=== PATIENT | male | born 1980 | race African-American/Black ===

== ENCOUNTER 2023-12-13 00:37 | Observation (INO) | payer MEDICARE ==
[~2023-12-13] VITALS: Ht 170.2 cm; Wt 157.2 kg
[2023-12-13] VITALS (20 sets, daily range): BP systolic 109–146; BP diastolic 75–105
[~2023-12-13 00:37] MED LIST: ALLOPURINOL100 MG PO; AMOXICILLIN500 MG PO; ASPIRIN325 M1 OR; BACTRIM DS1 TAB PO; CLEOCIN300 MG PO; COUMADIN10 MG OR; FLEXERIL OR; GLIPIZIDE10 MG PO; HUMULIN R1 M1 SC; HYDROCHLORO25 MG/TAB PO; HYDROCHLOROT25 MG OR; HYDROCHLOROTH12.5 MG OR; IRON325 MG OR; KLOR-CON M1010 MEQ OR; LEVAMIR SC; LISINOPRIL20 M1 PO; LISINOPRIL20 MG PO; LOVASTATIN20 MG OR; MELOXICAM7.5 MG PO; METFORMIN500 M1 OR; METFORMIN500 MG PO; METFORMIN850 MG PO; NAPROSYN500 MG PO; OXYCODONE20 MG OR; OXYCONTIN40 MG OR; PERCOCET1 TA1 OR; SENNA1 TAB OR; ULTRAM50 M1 PO; VERAPAMIL360 MG OR; WARFARIN10 MG OR
--- NOTE | 2023-12-13 00:40 | NUR ---
AMBULATORY FROM TO ROOM 6 FOR TRIAGE. SOB....BUT STATES HE IS HERE FOR GAS PAINS X 1 MONTH.
[2023-12-13] MEDS ORDERED: SIMVASTATIN40 MG PO (00:56)
[2023-12-13] MEDS ORDERED: LISINOP/HCTZ1 TA2 PO (00:56)
[2023-12-13 01:08] LABS: BASO% 0.6 % (0-3); EOS% 1.1 % (0-8); HEMOGLOBIN 12.4 g/dl (14.0-18.0); LYMPH% 12.1 % (15-41); MEAN CORPUSCULAR HGB 29.9 pG CALC (26.0-32.0); MEAN CORPUSCULAR HGB CONC 31.8 g/dL CAL (32.0-36.0); MONO% 10.8 % (2-13); NEUT# 6.19 thou/uL (1.82-7.42); NEUT% 74.4 % (42-76); RED BLOOD COUNT 4.15 mill/uL (4.70-6.10); RED CELL DISTRI WIDTH 14.7 % (11.5-15.5)
[2023-12-13 01:24] LABS: ALBUMIN 3.6 g/dL (3.2-5.0); CREATININE 1.1 mg/dL (0.7-1.3); TOTAL PROTEIN 7.2 g/dL (6.3-8.2)
[2023-12-13 01:25] LABS: BILIRUBIN, TOTAL 2.6 mg/dL (0.2-1.3); POTASSIUM 3.4 mmol/l (3.5-5.1)
[2023-12-13 01:31] LABS: ACT PARTIAL THROMBO TIME 23.6 SECONDS (20.0-32.5)
--- NOTE | 2023-12-13 01:40 | NUR ---
PT SITTING IN RM AWAITING RESULTS AT THIS TIME. CALL LIGHT WITHIN REACH AND PT HAS NO NEEDS OR CONCERNS AT THIS TIME.
[2023-12-13 01:41] LABS: D-DIMER 1.02 mg/L (0.19-0.60)
[2023-12-13 01:43] LABS: INTERNATIONAL NORMALIZED RATIO 1.6 RATIO (0.7-1.3); PROTHROMBIN TIME 15.3 SECONDS (9.0-12.5)
[2023-12-13] MEDS ORDERED: FUROSEMIDE 40 MG/4 ML SDV IV ONE (01:50)
[2023-12-13] MEDS ORDERED: NITROGLYCERIN 2% OINT UD 1 GM/PAK TD ONE (01:55)
--- NOTE | 2023-12-13 02:01 | NUR ---
DR TO BEDSIDE TO DISCUSS BNP/HEART FAILURE. PT MEDICATED AND TAKEN TO CT. URINE SAMPLE SENT.
[2023-12-13 02:09] LABS: URINE BLOOD DIPSTICK Moderate (NEGATIVE); URINE CLARITY Slightly Cloudy; URINE GLUCOSE - DIPSTICK Negative (NEGATIVE); URINE KETONE Negative (NEGATIVE); URINE LEUK ESTERASE Negative (Negative); URINE NITRITE - DIPSTICK Negative (Negative); URINE PH 5.5 (4.5-8.0); URINE PROTEIN - DIPSTICK >=300 mg/dL (NEG-TRACE); URINE SPECIFIC GRAVITY >=1.030
[2023-12-13 02:13] LABS: URINE COLOR Yellow
[2023-12-13 02:24] LABS: URINE BACTERIA MODERATE hpf; URINE MUCUS FEW hpf (NONE-FEW); URINE SQUAMOUS EPITHELIAL CELL FEW EPI/hpf (0-FEW)
--- NOTE | 2023-12-13 02:54 | NUR ---
PT SITTING IN RM AWAITING RESULTS AT THIS TIME. CALL LIGHT WITHIN REACH AND PT HAS NO NEEDS OR CONCERNS AT THIS TIME.
--- NOTE | 2023-12-13 03:55 | NUR ---
PT SITTING IN RM AWAITING RESULTS AT THIS TIME. CALL LIGHT WITHIN REACH AND PT HAS NO NEEDS OR CONCERNS AT THIS TIME.
--- NOTE | 2023-12-13 04:39 | NUR ---
PT SITTING IN RM AWAITING ADMIT AT THIS TIME. CALL LIGHT WITHIN REACH AND PT HAS NO NEEDS OR CONCERNS AT THIS TIME.
[2023-12-13] MEDS ORDERED: MAGNESIUM HYDROXIDE 30 ML UDC PO PRN (04:40)
[2023-12-13] MEDS ORDERED: SODIUM CHLORIDE 0.9% 1,000 ML IV PRN (04:40)
[2023-12-13] MEDS ORDERED: ACETAMINOPHEN 325 MG/TAB PO PRN (04:40)
--- NOTE | 2023-12-13 05:07 | NUR ---
PT TRANSFERRED TO A HOSPITAL BED AT THIS TIME AND IS TO REMAIN IN THE ER UNTIL A BED IS AVAILABLE UPSTAIRS. PT AWARE. CALL LIGHT WITHIN REACH AND PT HAS NO NEEDS OR CONCERNS. VSS. 2,000ML OF CLEAR YELLOW URINE EMPTIED OUT OF URINALS.
--- NOTE | 2023-12-13 06:11 | NUR ---
PT RESTING IN RM AWAITING RM UPSTAIRS. CALL LIGHT WITHIN REACH AND PT HAS NO NEEDS OR CONCERNS AT THIS TIME.
[2023-12-13] MEDS ORDERED: DEXTROSE 250 ML IV PRN ×2 (07:05)
--- NOTE | 2023-12-13 07:07 | NUR ---
REPORT GIVEN TO EVY CAMPOS AND CARE RELINQUISHED AT THIS TIME.
--- NOTE | 2023-12-13 07:16 | NUR ---
PT ASSESSMENT COMPLETE. PT RESTING WITH MONITOR IN PLACE. PT DENIES ANY PAIN OR CONCERNS AT THIS TIME. PLAN OF CARE REVIEWED WITH PT, PT DENIES ANY QUESTIONS UPON COMPLETION. PROVIDED PT WITH ORAL HYDRATION (8 OZ).
[2023-12-13] MEDS ORDERED: FUROSEMIDE 40 MG/4 ML SDV IV SCH ×2 (07:30→18:00)
[2023-12-13 08:05] LABS: BASO% 0.6 % (0-3); EOS% 0.8 % (0-8); HEMOGLOBIN 12.6 g/dl (14.0-18.0); IMMATURE GRANULOCYTES 0.1 % (0.0-5.0); LYMPH% 18.8 % (15-41); MEAN CELL VOLUME 94.2 fL CALC (80.0-100.0); MEAN CORPUSCULAR HGB 30.4 pG CALC (26.0-32.0); MEAN CORPUSCULAR HGB CONC 32.3 g/dL CAL (32.0-36.0); MONO% 9.6 % (2-13); NEUT# 5.83 thou/uL (1.82-7.42); NEUT% 70.1 % (42-76); RED BLOOD COUNT 4.14 mill/uL (4.70-6.10); RED CELL DISTRI WIDTH 14.7 % (11.5-15.5)
[2023-12-13 08:20] LABS: ALBUMIN 3.4 g/dL (3.2-5.0); BILIRUBIN, TOTAL 2.2 mg/dL (0.2-1.3); CREATININE 1.1 mg/dL (0.7-1.3); POTASSIUM 3.8 mmol/l (3.5-5.1); TOTAL PROTEIN 6.8 g/dL (6.3-8.2)
--- NOTE | 2023-12-13 08:36 | NUR ---
BOOKED A CARDIOLOGY COSULT WITH DR WIN VIA THE [facility] AT 0836 HRS.
[2023-12-13] MEDS ORDERED: INSULIN DETEMIR 100 UNITS/ML SC SCH (09:00)
--- NOTE | 2023-12-13 09:00 | NUR ---
PT TRANSPORTED TO [facility] BED [address]
--- NOTE | 2023-12-13 10:25 | NUR ---
PT IS SITTING ON CHAIR, DENIES SOB AT THIS TIME. PT IS AOX3. WHEEZING IS NOT HEARD UPON AUSCALATION. PT REPORTED BM THAT WAS WNL.
[2023-12-13] MEDS ORDERED: INSULIN LISPRO 100 UNITS/ML ML SC SCH (11:00)
[2023-12-13] MEDS ORDERED: METOPROLOL SUCCINATE 25 MG/TAB-TOPROL XL PO SCH (15:00)
--- NOTE | 2023-12-13 16:54 | NUR ---
CARDIOLOGY CONSULT IN PREOGRESS AT THIS TIME
--- NOTE | 2023-12-13 20:00 | NUR ---
PATIENT SITTING UP IN RECLINER AT THIS TIME. ALERT AND ORIENTEDX3. PATIENT WITH TELE MONITOR IN PLACE. LAST READING WAS SR-95 WITH PVC'S. VOIDING YELLOW URINE IN URINAL. PATIENT INSTRUCTED TO SAVE URINE IN URINAL FOR STRICT I&O. PATIENT IS GETTING LASIX 40MG IVP Q6H. VERBALIZES UNDERSTANDING. LUNGS ARE DIMINISHED BUT CLEAR. BLE SWELLING NOTED. PULSES ARE PALPABLE. ABD IS LARGE WITH ACTIVE BS. IV SITE TO RAC INTACT AND HEALTHY AT TH IS TIME. CALL LIGHT IN REACH. WILL CONT TO MONITOR.
[2023-12-13] MEDS ORDERED: ENOXAPARIN SODIUM 40 MG/0.4 ML SYR SC SCH (21:00)
[2023-12-13] MEDS ORDERED: ATORVASTATIN CALCIUM 40 MG/TAB PO SCH (21:00)
[2023-12-14] VITALS (10 sets, daily range): BP systolic 100–125; BP diastolic 66–95
--- NOTE | 2023-12-14 00:30 | NUR ---
PATIENT RESTING IN BED. MEDICATED WITH LASIX 40MG IVP VIA LEFT AC SITE ORDERED. CONT TO VOID YELLOW URINE IN URINAL. TELE MONITOR IN PLACE. NO COMPLAINTS AT THIS TIME. WILL CONT TO MONITOR.
--- NOTE | 2023-12-14 04:09 | NUR ---
PATIENT SITTING UP IN RECLINER-VOIDED 700CC OF CLEAR YELLOW URINE IN URINAL. TELE MONITOR IN PLACE. IV SITE TO LAC REMAINS INTACT-CIPRO HUNG AND INFUSING ORDERED LAC SITE. NO COMPLAINTS AT THIS TIME. CALL LIGHT IN REACH.L MWILL CONT TO MONITOR.
[2023-12-14 05:29] LABS: BASO% 0.6 % (0-3); EOS% 2.8 % (0-8); HEMATOCRIT 36.4 % (39.0-50.0); HEMOGLOBIN 12.3 g/dl (14.0-18.0); IMMATURE GRANULOCYTES 0.3 % (0.0-5.0); LYMPH% 20.2 % (15-41); MEAN CELL VOLUME 94.5 fL CALC (80.0-100.0); MEAN CORPUSCULAR HGB 31.9 pG CALC (26.0-32.0); MEAN CORPUSCULAR HGB CONC 33.8 g/dL CAL (32.0-36.0); MONO% 11.1 % (2-13); NEUT# 5.16 thou/uL (1.82-7.42); RED BLOOD COUNT 3.85 mill/uL (4.70-6.10); RED CELL DISTRI WIDTH 14.8 % (11.5-15.5)
[2023-12-14 05:34] LABS: ALBUMIN 3.2 g/dL (3.2-5.0); BILIRUBIN, TOTAL 1.4 mg/dL (0.2-1.3); CHOLESTEROL HDL RATIO 5.2 (<4.4 (CALC)); CREATININE 1.1 mg/dL (0.7-1.3); MAGNESIUM 1.2 mg/dL (1.6-2.3); POTASSIUM 3.2 mmol/l (3.5-5.1); TOTAL PROTEIN 6.4 g/dL (6.3-8.2)
--- NOTE | 2023-12-14 07:00 | NUR ---
SHIFT CHANGE REPORT, PT AWAKE ALERT AND ORIENTED SITTING UP IN RECLINER, NO C/O AT THIS TIME, TELE MONITOR IN PLACE, CALL PATRICK IN REACH.
[2023-12-14] MEDS ORDERED: POTASSIUM CHLORIDE 20 MEQ/TAB PO SCH (08:00)
[2023-12-14] MEDS ORDERED: MAGNESIUM SULFATE HEPTAHYDRATE 100 ML IV SCH (08:00)
--- NOTE | 2023-12-14 09:00 | NUR ---
VIRTUAL CONSULT WITH SUPPORTABILITY ENGINEER DONE, PLAN OF CARE DISCUSSED WITH PT WHO STATED UNDERSTANDING.
--- NOTE | 2023-12-14 12:07 | NUR ---
SITTING UP IN RECLINER AT THIS TIME, MAGNESIUM INFUSING, NO NEW COPLAINS. MD ROUNDED AND DISCUSSED CARE, PT TO HAVE ECHO DONE TODAY, NURSE WILL CONTACT ECHO AND COMPLETION OF MG INFUSION.
--- NOTE | 2023-12-14 16:20 | NUR ---
SITTING UP IN RECLINER AT THIS TIME AFTER BEING TRANSPORTED OFF UNIT TO ECHO AND TRANSPORTED BACK TO ROOM, ALL NEEDS ADDRESSED.
--- NOTE | 2023-12-14 20:00 | NUR ---
BEDSIDE SHIFT REPORT COMPLETED. SITTING UP ON COUCH WATCHING TELEVISION. DENIES NEEDS AT CURRENT TIME.
[2023-12-15] VITALS (9 sets, daily range): BP systolic 98–132; BP diastolic 70–97
--- NOTE | 2023-12-15 | NUR ---
MEDICATED WITH LONG ACTING INSULIN AND SNACK PROVIDED. DENIES PAIN OR DISCOMFORT. CONTINUES TO SIT UP IN CHAIR. ENCOURAGED TO ELEVATE LEGS WHILE IN CHAIR DUE TO EDEMA.
--- NOTE | 2023-12-15 04:00 | NUR ---
HAD GOOD NIGHT. NO C/O NOTED. SLEPT IN RECLINER ALL NIGHT. ENCOURAGED AGAIN TO ELEVATE LEGS WHILE IN RECLINER. GOOD OUTPUT FROM DIURETIC GIVEN. DENIED NEED AT CURRENT TIME.
--- NOTE | 2023-12-15 07:10 | NUR ---
REPORT RECEIVED FROM FRANKIERN
[2023-12-15 07:18] LABS: BASO% 0.5 % (0-3); EOS% 3.2 % (0-8); HEMATOCRIT 41.1 % (39.0-50.0); HEMOGLOBIN 13.3 g/dl (14.0-18.0); IMMATURE GRANULOCYTES 0.3 % (0.0-5.0); LYMPH% 21.4 % (15-41); MEAN CELL VOLUME 93.4 fL CALC (80.0-100.0); MEAN CORPUSCULAR HGB 30.2 pG CALC (26.0-32.0); MEAN CORPUSCULAR HGB CONC 32.4 g/dL CAL (32.0-36.0); MONO% 10.3 % (2-13); NEUT# 4.97 thou/uL (1.82-7.42); NEUT% 64.3 % (42-76); RED BLOOD COUNT 4.4 mill/uL (4.70-6.10); RED CELL DISTRI WIDTH 14.8 % (11.5-15.5)
[2023-12-15 07:32] LABS: ALBUMIN 3.5 g/dL (3.2-5.0); BILIRUBIN, TOTAL 1.3 mg/dL (0.2-1.3); CREATININE 0.9 mg/dL (0.7-1.3); MAGNESIUM 1.5 mg/dL (1.6-2.3); POTASSIUM 3.2 mmol/l (3.5-5.1); TOTAL PROTEIN 6.9 g/dL (6.3-8.2)
[2023-12-15] MEDS ORDERED: LOSARTAN Potassium 25 MG/TAB PO SCH (09:00)
--- NOTE | 2023-12-15 09:05 | NUR ---
PT OOB RESTING IN RECLINER,A&O X3;VS OBTAINED AND ASSESSMENT COMPLETED;PT DENIES ANY CURRENT PAIN OR DISCOMFORTS,PAIN SCALE AND REPORTING EDUCATED;RESPIRATIONS EVEN AND UNLABORED ON RA,DIMINISHED LUNG SOUNDS;ABDOMEN DISTENDED/SOFT ON PALPATION AND ACTIVE IN ALL 4 QUADRANTS;WEAK PEDAL PULSES, +2 BLE EDEMA NOTED AND PT ENCOURAGED ELEVATION;#18G TO LAC FLUSHED AND PATENT,SITE APPEARS HEALTHY;TELE MONITORING IN PLACE;ACCUCHECK 93, NO COVERAGE NEEDED;PT DENIES ANY ADDITIONAL NEEDS AND IS ENCOURAGED TO CALL FOR ASSISTANCE IF NEEDED;FALL PRECAUTIONS REMAIN IN PLACE WITH CALL LIGHT IN REACH;FREQUENT ROUNDS MADE.
[2023-12-15] MEDS ORDERED: POTASSIUM CHLORIDE 20 MEQ/TAB PO SCH (11:30)
--- NOTE | 2023-12-15 11:30 | NUR ---
PT REMAINS OOB RESTING IN RECLINER;RESPIRATIONS REMAIN EVEN AND UNLABORED ON RA;PT DENIES ANY CURRENT PAIN OR NEEDS;TELE MONITORING IN PLACE;#18G TO LAC NOTED TO BE LEAKING,SITE REMOVED WITH CATHETER INTACT;NEW #22G STARTED TO LW ON 1ST ATTEMPT BY THIS WRITTER AND PT TOLERATED WELL;ACCUCHECK 103, NO COVERAGE NEEDED;PT ENCOURAGED TO CALL FOR ASSISTANCE IF NEEDED;CALL LIGHT IN REACH;FREQUENT ROUNDS MADE.
[2023-12-15] MEDS ORDERED: MAGNESIUM SULFATE HEPTAHYDRATE 50 ML IV SCH (12:00)
--- NOTE | 2023-12-15 15:45 | NUR ---
PT OOB RESTING IN RECLINER;RESPIRATIONS EVEN AND UNLABORED ON RA;PT DENIES ANY CURRENT PAIN OR DISCOMFORTS;TELE MONITORING IN PLACE;IV SITE TO LW REMAIN PATENT;ACCUCHECK 107, NO COVERAGE NEEDED;PT ENCOURAGED TO CALL FOR ASSISTANCE IF NEEDED;CALL LIGHT IN REACH;FREQUENT ROUNDS MADE.
--- NOTE | 2023-12-15 17:10 | NUR ---
CARDIOLOGY CONSULT COMPLETED AT THIS TIME.
--- NOTE | 2023-12-15 19:30 | NUR ---
PATIENT OBSERVED SITTING IN RECLINER. ALERT AND ABLE TO MAKE NEEDS KNOWN. ASSESSMENT COMPLETE. NO DISTRESS NOTED. NO COMPLAINTS OF PAIN. DENIES NEEDING ANYTHING AT THIS TIME. EMPTIED URINALS X2. 1200CC CLEAR YELLOW URINE.
[2023-12-15] MEDS ORDERED: CIPROFLOXACIN HCL 500 MG/TAB PO SCH (21:00)
--- NOTE | 2023-12-15 22:25 | NUR ---
PER ED PATIENT HAD A 12 BEAT RUN OF VTACH. PATIENT DENIES ANY CHEST DISCOMPFORT. VS STABLE.
--- NOTE | 2023-12-15 22:30 | NUR ---
NOTIFIED PARTS MANAGER OF PATIENTS RUN OF [facility].
--- NOTE | 2023-12-15 22:47 | NUR ---
STAT EKG DONE, SHOWING NORMAL SINUS RHYTHM PER RT. CALLED AND NOTIFIED [employer] GUIDES PROVIDER AND INFORMED OF PATIENTS RUN OF VTACH AND HIS MOST RECENT BP. NO NEW ORDERS AT THIS TIME.
--- NOTE | 2023-12-16 | NUR ---
PATIENT REMAINS RESTING IN RECLINER. OXYGEN ON AT 2L VIA NC. NO DISTRESS NOTED. NO COMPLAINTS OF PAIN. CALL PATRICK REMAINS IN REACH.
--- NOTE | 2023-12-16 04:35 | NUR ---
PATIENT REMAINS RESTING IN RECLINER. DENIES NEEDING ANYTHING AT THIS TIME. NO SHORTNESS OF BREATH. NO COMPLAINTS OF PAIN. CALL PATRICK AND BELONGINGS REMAIN IN REACH.
[2023-12-16 04:38] VITALS: BP 102/74
[2023-12-16 05:59] LABS: BASO% 0.5 % (0-3); EOS% 3.7 % (0-8); HEMATOCRIT 42.7 % (39.0-50.0); HEMOGLOBIN 13.6 g/dl (14.0-18.0); IMMATURE GRANULOCYTES 0.1 % (0.0-5.0); LYMPH% 29.5 % (15-41); MEAN CELL VOLUME 95.5 fL CALC (80.0-100.0); MEAN CORPUSCULAR HGB 30.4 pG CALC (26.0-32.0); MEAN CORPUSCULAR HGB CONC 31.9 g/dL CAL (32.0-36.0); MONO% 9.2 % (2-13); NEUT# 4.28 thou/uL (1.82-7.42); RED BLOOD COUNT 4.47 mill/uL (4.70-6.10)
[2023-12-16 06:48] LABS: ALBUMIN 3.5 g/dL (3.2-5.0); BILIRUBIN, TOTAL 1.1 mg/dL (0.2-1.3); CREATININE 0.9 mg/dL (0.7-1.3); MAGNESIUM 1.6 mg/dL (1.6-2.3); POTASSIUM 3.7 mmol/l (3.5-5.1); TOTAL PROTEIN 6.9 g/dL (6.3-8.2)
[2023-12-16 07:10] VITALS: BP 117/85
[2023-12-16 07:35] VITALS: BP 117/85
[2023-12-16] MEDS ORDERED: SPIRONOLACTONE 25 MG/TAB PO SCH (09:00)
[2023-12-16 10:30] VITALS: BP 105/74
[2023-12-16] MEDS ORDERED: LOSARTAN POTASS25 MG PO (12:01)
[2023-12-16] MEDS ORDERED: TOPROL XL25 M1 PO (12:01)
[2023-12-16] MEDS ORDERED: ALDACTONE25 MG PO (12:02)
[2023-12-16] MEDS ORDERED: LASIX40 MG PO (12:02)
--- NOTE | 2023-12-16 12:15 | NUR ---
Discharge instructions given. Patient verbalizes understanding of same. Discharged in stable condition via Wheelchair to Home with *Other. All belongings sent with pt. IV REMOVED, CATHETER INTACT, SITE WNL.
--- NOTE | 2023-12-16 12:25 | NUR ---
Patient resting in bed, bed locked and low. Call light within reach. No apparent distress observed or reported by patient. Plan of care reviewed with patient, questions encouraged and answered to best ability within scope of practice. No further questions at this time. Patient encouraged to call if any needs were to arise. Will continue to monitor.
--- NOTE | 2023-12-21 13:24 | NUR ---
Discharge follow up call completed 12/21/23. Pt states he is doing well and has had no issues since discharge. Pt had a follow up appointment with his PCP yesterday. He is taking medication prescribed at discharge and has had no issue. No needs or concerns verbalized at this time.
== END 2023-12-16 13:50 | disposition home or self-care (01) ==
LOC: ED 00:37 → ED-I 04:15 → ED 04:37 → ED-I 04:38 → MS2 08:46
PROVIDERS: Emergency Medicine; Student in an Organized Health Care Education/Training Program; ADMIT Internal Medicine; ATTEND Internal Medicine
DX: I11.0 Hypertensive heart disease with heart failure (principal); I50.21 Acute systolic (congestive) heart failure; E87.6 Hypokalemia; E83.42 Hypomagnesemia; E11.65 Type 2 diabetes mellitus with hyperglycemia; E78.5 Hyperlipidemia, unspecified; I47.20 Ventricular tachycardia, unspecified; I08.1 Rheumatic disorders of both mitral and tricuspid valves; G47.33 Obstructive sleep apnea (adult) (pediatric); E66.01 Morbid (severe) obesity due to excess calories; Z68.43 Body mass index [BMI] 50.0-59.9, adult; Z82.49 Family history of ischemic heart disease and other diseases of the circulatory system; Z79.84 Long term (current) use of oral hypoglycemic drugs
CPT/HCPCS: J1650; J3475; Q9967